=== PATIENT | male | born 1960 | race Caucasian/White ===

== ENCOUNTER 2018-05-19 03:52 | Emergency (ER) | payer OTHER ==
[~2018-05-19] VITALS: Ht 175.3 cm; Wt 94.9 kg
[~2018-05-19 03:52] MED LIST: MECLIZINE HCL25 MG PO; VALIUM2 MG PO
[2018-05-19] MEDS ORDERED: BENADRYL50 MG PO (04:17)
[2018-05-19] MEDS ORDERED: ZANTAC150 MG PO (04:17)
[2018-05-19] MEDS ORDERED: ZYRTEC10 M2 PO (04:17)
[2018-05-19] MEDS ORDERED: LOTRISONE15 GM TP (04:18)
[2018-05-19 04:38] VITALS: BP 125/78
== END 2018-05-19 04:39 | disposition home or self-care (01) ==
LOC: EME 03:52
DX: R21 Rash and other nonspecific skin eruption (principal); E78.5 Hyperlipidemia, unspecified
CPT/HCPCS: 99281; 99282